=== PATIENT | female | born 2000 | race Caucasian/White ===

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

== ENCOUNTER 2022-02-10 15:49 | Emergency (ER) | payer OTHER ==
[2022-02-10 16:10] VITALS: BP 165/102; PULSE 115; RESP 18; TEMP 98.4; BMI 34.9
[2022-02-10] MEDS ORDERED: PSEUDOEPHEDRINE HCL 60 MG TABLET PO ONE (17:29)
[2022-02-10] MEDS ORDERED: PSEUDOEPHEDRINE HCL 60 MG TABLET ONE (17:37)
== END 2022-02-10 18:34 | disposition home or self-care (01) ==
LOC: JER 15:49
DX: J06.9 Acute upper respiratory infection, unspecified (principal); R05.1 Acute cough; R09.81 Nasal congestion
CPT/HCPCS: 0241U-QW; 99283-25